=== PATIENT | female | born 1990 | race Caucasian/White ===

== ENCOUNTER 2016-12-19 03:41 | Emergency (ER) | payer BC ==
--- NOTE | ~2016-12-19 | OR ---
Unit #: [id number] #: [id number] Patient: KIKI GAMBLE [id number] [facility] [address]. [place], [place] [address] [id number] MR#: [id number] NAME: KIKI GAMBLE ROOM: Date of Procedure: 12/19/2016 Admission Date: 12/19/2016 Surgeon: Pravin Hollins M.D. : 1990 Attending Physician: Lida Modi M.D. OPERATIVE REPORT ATTENDING PHYSICIAN Emergency room doctor at [facility]. The patient does not have any PCP. PREOPERATIVE DIAGNOSES The patient has presented to the emergency room with a bolus meat impaction after she eating a chicken burrito got stuck in her esophagus. She has a lot of pain and has total dysphagia, unable to swallow her saliva, PROCEDURES PERFORMED 1. Upper gastrointestinal endoscopy and meat disimpaction from the distal esophagus. 2. The patient had a distal esophageal benign stricture. RECOMMENDATIONS 1. Omeprazole 40 mg p.o. daily. 2. The patient should call our office in next 6 weeks to schedule an outpatient upper endoscopy and elective dilation of the stricture. She should also chew really well and eat slow in the meantime. SEDATION USED Procedural sedation. DESCRIPTION OF PROCEDURE Following detailed explanation of the potential risks and complications of an upper endoscopy, namely perforation, bleeding, complication related to sedation, the patient laid in left lateral decubitus position. The procedure was done in the emergency room with the patient at bedside. Lubricated tip of the Olympus video upper endoscope was passed through bite block into the proximal esophagus under direct vision. The entire esophageal mucosa was examined and the patient was noted to have a meat bolus impacted in the distal esophagus. This was grasped using a polypectomy snare and delivered outside. Relook endoscopy showed underlying benign stricture in the distal esophagus. The scope was then advanced into the gastric cavity. The latter was insufflated. Mucosa of the fundus, body, and antrum was examined and appeared unremarkable. Pylorus was intubated with visualization of the normal duodenal bulb and second and third part of the duodenum. Upon withdrawal and retroflexion, incisura, cardia, and greater curve were examined and no additional findings noted. The scope was then withdrawn in the distal esophagus. The entire esophageal mucosa was examined all the way up to pharynx, no Unit #: [id number] #: [id number] Patient: KIKI GAMBLE additional findings noted. The patient tolerated the procedure without any postprocedure complications. Dictated by.Antonietta Olsen TD: 12/19/2016 13:44 JOB #: [id number] OPERATIVE REPORT Page 1 of 1 X Pravin Hollins MD X PROCEDURE OPERATIVE NOTE
[~2016-12-19 03:41] MED LIST: BIRTH CONTROL PILL; PREDNISONE; ZYRTEC
[2016-12-19] MEDS ORDERED: OMEPRAZOLE20 M1 PO (10:54)
== END 2016-12-19 09:54 | disposition home or self-care (01) ==
LOC: CED 03:41
DX: T18.128A Food in esophagus causing other injury, initial encounter (principal); K22.2 Esophageal obstruction
CPT/HCPCS: 80048; 84703; 85025; 85610; 96361; 96374; 99285; J1610; J2250; J3010